=== PATIENT | male | born 1965 | race Two or more races ===

== ENCOUNTER 2021-09-04 13:15 | Inpatient (IN) | payer OTHER ==
[~2021-09-04] VITALS: Ht 175.3 cm; Wt 95.3 kg
[2021-09-04] MEDS ORDERED: ZOCOR20 MG PO (15:47)
[2021-09-04] MEDS ORDERED: COZAAR100 MG PO (15:47)
[2021-09-04] MEDS ORDERED: REMERON45 M1 PO (15:47)
[2021-09-04] MEDS ORDERED: PROTONIX40 MG PO (15:47)
[2021-09-04] MEDS ORDERED: EFFEXOR XR75 MG PO (15:48)
[2021-09-04] MEDS ORDERED: CLONAZEPAM0.5 MG PO (15:48)
[2021-09-08] MEDS ORDERED: SILDENAFIL CITR50 MG (08:43)
[2021-09-08] MEDS ORDERED: BACLOFEN10 MG (08:44)
== END 2021-09-11 13:43 | disposition home or self-care (01) | DRG 331 ==
LOC: EDSTATUS 13:15 → ADM 13:15 → SURH 09-08 05:58 → O/R 09-08 05:58 → SURH 09-08 07:00
PROVIDERS: ADMIT Colon & Rectal Surgery; ATTEND Colon & Rectal Surgery
PROC: 0DBP4ZZ Excision of Rectum, Percutaneous Endoscopic Approach (ICD-10-PCS; 2021-09-08)
PROC: 0DJD8ZZ Inspection of Lower Intestinal Tract, Via Natural or Artificial Opening Endoscopic (ICD-10-PCS; 2021-09-08)
PROC: 4A1BXSH Monitoring of Gastrointestinal Vascular Perfusion using Indocyanine Green Dye, External Approach (ICD-10-PCS; 2021-09-08)
PROC: 0DTN4ZZ Resection of Sigmoid Colon, Percutaneous Endoscopic Approach (ICD-10-PCS; principal; 2021-09-08 07:00)
DX: K57.20 Diverticulitis of large intestine with perforation and abscess without bleeding (principal); R10.32 Left lower quadrant pain; K63.5 Polyp of colon; I10 Essential (primary) hypertension

== ENCOUNTER 2021-09-06 09:58 | Day surgery (SDC) | payer OTHER ==
[~2021-09-06 09:58] MED LIST: CLONAZEPAM0.5 MG PO; COZAAR100 MG PO; EFFEXOR XR75 MG PO; PROTONIX40 MG PO; REMERON45 M1 PO; ZOCOR20 MG PO
== END 2021-09-06 15:40 | disposition home or self-care (01) ==
LOC: AMB-ENDOS 09:58
PROVIDERS: ATTEND Colon & Rectal Surgery
DX: K57.20 Diverticulitis of large intestine with perforation and abscess without bleeding (principal); R10.32 Left lower quadrant pain; K63.5 Polyp of colon